=== PATIENT | male | born 1985 | race Two or more races ===

== ENCOUNTER 2017-07-07 05:53 | Emergency (ER) | payer BC ==
[2017-07-07 06:14] VITALS: BP 145/90
[2017-07-07] MEDS ORDERED: ONDANSETRON HCL INJ/PF 4 MG/2 ML SDV IV ONE (06:22)
[2017-07-07] MEDS ORDERED: HYDROMORPHONE HCL INJ/PF 2 MG/ML AMPULE IV ONE (06:22)
--- NOTE | 2017-07-07 06:25 | ER Document Report ---
ED General - General Chief Complaint: Abdominal Pain Stated Complaint: ABDOMINAL PAIN Time Seen by Provider: 07/07/17 06:21 Mode of Arrival: Ambulatory Information source: Patient Notes: 32-year-old male who presents with sudden epigastric abdominal pain sharp started this morning. Patient denies any fevers or chills denies any nausea vomiting or diarrhea. Patient denies any previous similar episodes. TRAVEL OUTSIDE OF THE [place] IN LAST 30 DAYS: No - HPI Onset: Just prior to arrival Onset/Duration: Sudden Quality of pain: Sharp Severity: Moderate Pain Level: 2 Associated symptoms: Other Exacerbated by: Denies Relieved by: Denies Similar symptoms previously: No Recently seen / treated by doctor: No - Related Data Allergies/Adverse Reactions: No Known Allergies Allergy (Verified 07/07/17 06:40) Past Medical History - Social History Smoking Status: Never Smoker Cigarette use (# per day): No Chew tobacco use (# tins/day): No Smoking Education Provided: No Family History: Reviewed & Not Pertinent - Immunizations Hx Diphtheria, Pertussis, Tetanus Vaccination: No Review of Systems - Review of Systems Notes: REVIEW OF SYSTEMS: CONSTITUTIONAL : Denies fever, chills, or sweats. Denies recent illness. EENT: Denies eye, ear, throat, or mouth pain or symptoms. Denies nasal or sinus congestion or discharge. Denies throat, tongue, or mouth swelling or difficulty swallowing. CARDIOVASCULAR: Denies chest pain. Denies palpitations or racing or irregular heart beat. Denies ankle edema. RESPIRATORY: Denies cough, cold, or chest congestion. Denies shortness of breath, difficulty breathing, or wheezing. GASTROINTESTINAL: Admits to epigastric pain GENITOURINARY: Denies difficulty urinating, painful urination, burning, frequency, blood in urine, or discharge. MUSCULOSKELETAL: Denies back or neck pain or stiffness. Denies joint pain or swelling. SKIN: Denies rash, lesions or sores. HEMATOLOGIC : Denies easy bruising or bleeding. LYMPHATIC: Denies swollen, enlarged glands. NEUROLOGICAL: Denies confusion or altered mental status. Denies passing out or loss of consciousness. Denies dizziness or lightheadedness. Denies headache. Denies weakness or paralysis or loss of use of either side. Denies problems with gait or speech. Denies sensory loss, numbness, or tingling. Denies seizures. PSYCHIATRIC: Denies anxiety or stress. Denies depression, suicidal ideation, or homicidal ideation. ALL OTHER SYSTEMS REVIEWED AND NEGATIVE. Dictation was performed using [employer] voice recognition software PHYSICAL EXAMINATION: GENERAL: Initially rocking in pain HEAD: Atraumatic, normocephalic. EYES: Pupils equal round and reactive to light, extraocular movements intact, sclera anicteric, conjunctiva are normal. ENT: Nares patent, oropharynx clear without exudates. Moist mucous membranes. NECK: Normal range of motion, supple without lymphadenopathy LUNGS: Breath sounds clear to auscultation bilaterally and equal. No wheezes rales or rhonchi. HEART: Regular rate and rhythm without murmurs ABDOMEN: Soft, nontender, nondistended abdomen after GI cocktail. No guarding, no rebound. No masses appreciated. Musculoskeletal: Normal range of motion, no pitting or edema. No cyanosis. NEUROLOGICAL: Cranial nerves grossly intact. Normal speech, normal gait. Normal sensory, motor exams PSYCH: Normal mood, normal affect. SKIN: Warm, Dry, normal turgor, no rashes or lesions noted. Physical Exam - Vital signs Vitals: Temp Pulse Resp BP Pulse Ox 98.5 F 96 20 145/90 H 97 07/07/17 06:13 07/07/17 06:13 07/07/17 06:13 07/07/17 06:13 07/07/17 06:13 Course - Re-evaluation Re-evalutation: 07/07/17 08:19 Patient was initially given pain medication this did not improve his symptoms, he was immediately sent for an ultrasound to rule out an acute cholecystitis, his lab work was quite benign, he was given a GI cocktail which completely resolved his symptoms. Patient states he feels much better is happy in no distress at this time ultrasound report is pending - Vital Signs Vital signs: Temp Pulse Resp BP Pulse Ox 98.5 F 96 20 145/90 H 97 07/07/17 06:13 07/07/17 06:13 07/07/17 06:13 07/07/17 06:13 07/07/17 06:13 - Laboratory Result Diagrams: 07/07/17 06:30 07/07/17 06:30 Laboratory results interpreted by me: 07/07/17 07/07/17 06:30 06:30 RBC 5.59 H RDW 14.9 H Sodium 145.1 H Carbon Dioxide 31 H ALT 127 H Albumin 5.1 H
[2017-07-07 06:44] LABS: ABSOLUTE BASOPHILS # (AUTO) 0.1 10^3/uL (0.0-0.2); ABSOLUTE EOSINOPHILS # (AUTO) 0.2 10^3/uL (0.0-0.6); ABSOLUTE LYMPHOCYTES (AUTO) 2.7 10^3/uL (0.5-4.7); ABSOLUTE NEUT (AUTO) 5.1 10^3/uL (1.7-8.2); BASOPHILS % (AUTO) 0.6 % (0-2); EOSINOPHILS % (AUTO) 2.5 % (0-6); HEMATOCRIT 45.9 % (37.9-51.0); HEMOGLOBIN 15.3 g/dL (13.5-17.0); LYMPHOCYTES % (AUTO) 29.4 % (13-45); MEAN CORPUSCULAR HEMOGLOBIN 27.3 pg (27.0-33.4); MEAN CORPUSCULAR HGB CONC 33.3 g/dL (32.0-36.0); MEAN CORPUSCULAR VOLUME 82 fl (80-97); MONOCYTES % (AUTO) 11.5 % (3-13); PLATELET COUNT 236 10^3/uL (150-450); RED BLOOD COUNT 5.59 10^6/uL (4.35-5.55); RED CELL DISTRIBUTION WIDTH 14.9 % (11.5-14.0); TOTAL CELLS COUNTED % (AUTO) 100 %; WHITE BLOOD COUNT 9.1 10^3/uL (4.0-10.5)
[2017-07-07 06:59] LABS: ALANINE AMINOTRANSFERASE 127 U/L (21-72); ALBUMIN 5.1 g/dL (3.5-5.0); ALKALINE PHOSPHATASE 72 U/L (38-126); ANION GAP 14 (5-19); ASPARTATE AMINO TRANSFERASE 56 U/L (17-59); BILIRUBIN,DIRECT 0.2 mg/dL (0.0-0.4); BILIRUBIN,TOTAL 0.9 mg/dL (0.2-1.3); BLOOD UREA NITROGEN 12 mg/dL (7-20); CALCIUM 9.9 mg/dL (8.4-10.2); CARBON DIOXIDE 31 mmol/L (22-30); CHLORIDE 100 mmol/L (98-107); GLUCOSE 107 mg/dL (75-110); LIPASE 106.2 U/L (23-300); POTASSIUM 3.9 mmol/L (3.6-5.0); SODIUM 145.1 mmol/L (137-145); TOTAL PROTEIN 8.1 g/dL (6.3-8.2)
[2017-07-07] MEDS ORDERED: MAG HYDROX/AL HYDROX/SIMETH SUSP 30 ML UDCUP PO ONE (07:14)
[2017-07-07] MEDS ORDERED: LIDOCAINE 2% VISCOUS SOLN 20 ML UDCUP PO ONE (07:14)
[2017-07-07] MEDS ORDERED: METOCLOPRAMIDE HCL ORAL SOLN 10 MG/10 ML UDCUP PO ONE (07:14)
--- NOTE | 2017-07-07 08:24 | RADIOLOGY REPORT (SQ) ---
EXAM DESCRIPTION: U/S ABDOMEN LIMITED W/O DOP COMPLETED DATE/TIME: 07/07/2017 6:58 am REASON FOR STUDY: RUQ pain COMPARISON: 04/02/2017. TECHNIQUE: Dynamic and static grayscale images acquired of the right upper quadrant and recorded on PACS. Additional selected color Doppler and spectral images recorded. LIMITATIONS: Study limited due to acoustical interference from fat or from air in the bowel. FINDINGS: PANCREAS: Parts of the pancreas poorly seen secondary to acoustical interference from fat or from air in the bowel. LIVER: Echotexture is coarse with increased echogenicity consistent with fatty infiltration. No mass es. LIVER VASCULATURE: Normal directional flow of the main portal vein and hepatic veins. GALLBLADDER: Sludge in the gallbladder. Normal wall thickness. No pericholecystic fluid. ULTRASOUND-DETECTED HOPPER'S SIGN: Negative. INTRAHEPATIC DUCTS AND COMMON DUCT: CBD and intrahepatic ducts normal caliber. No filling defects. INFERIOR VENA CAVA: Normal flow. AORTA: No aneurysm. RIGHT KIDNEY: Normal size. Normal echogenicity. No solid or suspicious masses. No hydronephrosis. No calcifications. PERITONEAL CAVITY AND RIGHT PLEURAL SPACE: No ascites or effusions. OTHER: No other significant finding. IMPRESSION: 1. SLUDGE IN THE GALLBLADDER. 2. FATTY LIVER. PANCREAS PARTIALLY OBSCURED. OTHERWISE UNREMARKABLE RIGHT UPPER QUADRANT ULTRASOUND. TECHNICAL DOCUMENTATION: JOB ID: [id number] [employer]- All Rights Reserved
== END 2017-07-07 09:16 | disposition home or self-care (01) ==
LOC: ER 05:53
DX: K76.0 Fatty (change of) liver, not elsewhere classified (principal); K21.0 Gastro-esophageal reflux disease with esophagitis; R10.13 Epigastric pain; I10 Essential (primary) hypertension
CPT/HCPCS: 99284; 96374; 96375; 36415; 83690; 85025; 80053; 76705; J3490; J1170; J2405

== ENCOUNTER → 2017-09-12 | Outpatient (CLI) | payer BC ==
--- NOTE | 2017-09-12 09:37 | RADIOLOGY REPORT (SQ) ---
EXAM DESCRIPTION: U/S ABDOMEN LIMITED W/O DOP COMPLETED DATE/TIME: 09/12/2017 9:21 am REASON FOR STUDY: FATTY LIVER K76.0 FATTY (CHANGE OF) LIVER, NOT ELSEWHERE CLASSIFIED COMPARISON: 07/07/2017. TECHNIQUE: Dynamic and static grayscale images acquired of the abdomen and recorded on PACS. Additio nal selected color Doppler and spectral images recorded. LIMITATIONS: None. FINDINGS: PANCREAS: No masses. No peripancreatic edema or fluid collections. LIVER: Echotexture is coarse with increased echogenicity consistent with fatty infiltration. LIVER VASCULATURE: Normal directional flow of the main portal vein and hepatic veins. GALLBLADDER: Gallstone(s). No pericholecystic fluid. No wall thickening. ULTRASOUND-DETECTED HOPPER'S SIGN: Negative. INTRAHEPATIC DUCTS AND COMMON DUCT: CBD and intrahepatic ducts normal caliber. No filling defects. INFERIOR VENA CAVA: Normal flow. AORTA: No aneurysm. RIGHT KIDNEY: Normal size. Normal echogenicity. No solid or suspicious masses. No hydronephrosis. No calcifications. PERITONEAL AND RIGHT PLEURAL SPACE: No ascites or effusions. OTHER: No other significant finding. IMPRESSION: FATTY INFILTRATION OF THE LIVER. GALLSTONES. NO OTHER SIGNIFICANT FINDINGS. TECHNICAL DOCUMENTATION: JOB ID: [id number] [employer]- All Rights Reserved Reading location - IP/workstation name: [email or web address]
== END ==
LOC: RAD 08:48
PROVIDERS: ATTEND Family Medicine
DX: K76.0 Fatty (change of) liver, not elsewhere classified (principal)
CPT/HCPCS: 76705

== ENCOUNTER 2018-08-23 10:45 | Inpatient (IN) | payer BC ==
[~2018-08-23 10:45] MED LIST: DEXAMETHASONE SOD PHOSPHATE INJ 4 MG/1 ML VIAL ONE; GLYCOPYRROLATE 1 MG/5 ML SYRINGE ONE; LIDOCAINE 2% INJ-PF (20 MG/ML) 2 ML AMPUL ONE; NEOSTIGMINE METHYLSULFATE 10 MG/10 ML VIAL ONE; ONDANSETRON HCL INJ/PF 4 MG/2 ML SDV ONE; ROCURONIUM BROMIDE INJ 50 MG/5 ML VIAL IV ONE; SUCCINYLCHOLINE CHLORIDE INJ 200 MG/10 ML VIAL ONE
[2018-08-23] MEDS ORDERED: MORPHINE SULFATE 10 MG/ML INJ IV ONE (10:58)
--- NOTE | 2018-08-23 11:02 | ER Document Report ---
ED Medical Screen (RME) - General Chief Complaint: Abdominal Pain Stated Complaint: ABDOMINAL PAIN Time Seen by Provider: 08/23/18 10:57 Primary Care Provider: JA ROWE MD [Primary Care Provider] - Follow up as needed Mode of Arrival: Ambulatory Information source: Patient, Relative TRAVEL OUTSIDE OF THE [place] IN LAST 30 DAYS: No - HPI Patient complains to provider of: abd pain Onset: Yesterday - pt with RUQ pain for the day. Has h/o sludge in GB - Related Data Allergies/Adverse Reactions: No Known Allergies Allergy (Verified 08/23/18 10:48) Past Medical History Renal/ Medical History: Denies: Hx Peritoneal Dialysis - Immunizations Hx Diphtheria, Pertussis, Tetanus Vaccination: No Physical Exam - Vital signs Vitals: Temp Pulse Resp BP Pulse Ox 98.2 F 90 17 152/98 H 99 08/23/18 10:49 08/23/18 10:49 08/23/18 10:49 08/23/18 10:49 08/23/18 10:49 Course - Vital Signs Vital signs: Temp Pulse Resp BP Pulse Ox 98.2 F 90 17 152/98 H 99 08/23/18 10:49 08/23/18 10:49 08/23/18 10:49 08/23/18 10:49 08/23/18 10:49 Doctor's Discharge - Discharge Referrals: JA ROWE MD [Primary Care Provider] - Follow up as needed
[2018-08-23] MEDS ORDERED: ONDANSETRON HCL INJ/PF 4 MG/2 ML SDV IV ONE ×2 (11:16→12:35)
[2018-08-23 11:29] LABS: ABSOLUTE EOSINOPHILS # (AUTO) 0.2 10^3/uL (0.0-0.6); ABSOLUTE LYMPHOCYTES (AUTO) 2.5 10^3/uL (0.5-4.7); ABSOLUTE MONOCYTES (AUTO) 0.8 10^3/uL (0.1-1.4); ABSOLUTE NEUT (AUTO) 4.9 10^3/uL (1.7-8.2); BASOPHILS % (AUTO) 0.5 % (0-2); EOSINOPHILS % (AUTO) 2.5 % (0-6); HEMOGLOBIN 15.5 g/dL (13.5-17.0); LYMPHOCYTES % (AUTO) 29.4 % (13-45); MEAN CORPUSCULAR HEMOGLOBIN 27.1 pg (27.0-33.4); MEAN CORPUSCULAR HGB CONC 33.7 g/dL (32.0-36.0); MEAN CORPUSCULAR VOLUME 81 fl (80-97); MONOCYTES % (AUTO) 8.9 % (3-13); PLATELET COUNT 245 10^3/uL (150-450); RED BLOOD COUNT 5.72 10^6/uL (4.35-5.55); SEGMENTED NEUTROPHILS % (AUTO) 58.7 % (42-78); TOTAL CELLS COUNTED % (AUTO) 100 %; WHITE BLOOD COUNT 8.4 10^3/uL (4.0-10.5)
[2018-08-23 11:38] LABS: APPEARANCE,URINE CLEAR; BILIRUBIN,URINE SMALL (NEGATIVE); COLOR,URINE YELLOW; GLUCOSE, URINE NEGATIVE (NEGATIVE); KETONES,URINE NEGATIVE (NEGATIVE); LEUKOCYTE ESTERASE,URINE NEGATIVE (NEGATIVE); NITRITE,URINE NEGATIVE (NEGATIVE); PROTEIN,URINE NEGATIVE (NEGATIVE); URINE SPECIFIC GRAVITY 1.024
[2018-08-23 12:00] LABS: ALANINE AMINOTRANSFERASE 126 U/L (21-72); ALBUMIN 4.8 g/dL (3.5-5.0); ALKALINE PHOSPHATASE 89 U/L (38-126); ANION GAP 11 (5-19); ASPARTATE AMINO TRANSFERASE 64 U/L (17-59); BILIRUBIN,DIRECT 0.4 mg/dL (0.0-0.4); BILIRUBIN,TOTAL 1.2 mg/dL (0.2-1.3); BLOOD UREA NITROGEN 15 mg/dL (7-20); CALCIUM 10.2 mg/dL (8.4-10.2); CARBON DIOXIDE 33 mmol/L (22-30); CHLORIDE 98 mmol/L (98-107); GLUCOSE 118 mg/dL (75-110); LIPASE 94.6 U/L (23-300); POTASSIUM 3.7 mmol/L (3.6-5.0); SODIUM 142.2 mmol/L (137-145); TOTAL PROTEIN 8.8 g/dL (6.3-8.2)
--- NOTE | 2018-08-23 12:28 | RADIOLOGY REPORT (SQ) ---
EXAM DESCRIPTION: U/S ABDOMEN LTD W/DOPPLER COMPLETED DATE/TIME: 08/23/2018 12:15 pm REASON FOR STUDY: RUQ abd pain COMPARISON: Right upper quadrant ultrasound 09/12/2017, and 07/07/2017, 04/02/2017 TECHNIQUE: Dynamic and static grayscale images acquired of the abdomen and recorded on PACS. Additio nal selected color Doppler and spectral images recorded. LIMITATIONS: Midline bowel gas FINDINGS: PANCREAS: Not visualized LIVER: Echogenic liver from fatty infiltration LIVER VASCULATURE: Normal directional flow of the main portal vein and hepatic veins. GALLBLADDER: Gallbladder is distended. There is a 2 cm stone lodged in the gallbladder neck. Border line gallbladder wall thickening, trace pericholecystic fluid ULTRASOUND-DETECTED GRANGER'S SIGN: Positive. INTRAHEPATIC DUCTS AND COMMON DUCT: CBD and intrahepatic ducts normal caliber. No filling defects. INFERIOR VENA CAVA: Normal flow. AORTA: No aneurysm. RIGHT KIDNEY: Normal size. Normal echogenicity. No solid or suspicious masses. No hydronephrosis. No calcifications. PERITONEAL AND RIGHT PLEURAL SPACE: No ascites or effusions. OTHER: No other significant findings. IMPRESSION: 2 cm stone lodged in the gallbladder neck with borderline gallbladder wall thickening, t race pericholecystic fluid and positive sonographic Granger sign worrisome for acute cholecystitis Fatty liver TECHNICAL DOCUMENTATION: JOB ID: [id number]- All Rights Reserved Reading location - IP/workstation name: [email or web address]
[2018-08-23] MEDS ORDERED: PIPERACILLIN/TAZOBACTAM 3.375 GM VIAL IV ONE (12:35)
[2018-08-23] MEDS ORDERED: HYDROMORPHONE HCL INJ/PF 2 MG/ML AMPULE IV ONE (12:35)
--- NOTE | 2018-08-23 13:32 | ER Document Report ---
ED General - General Chief Complaint: Abdominal Pain Stated Complaint: ABDOMINAL PAIN Time Seen by Provider: 08/23/18 10:57 Primary Care Provider: JA ROWE MD [Primary Care Provider] - Follow up as needed Mode of Arrival: Ambulatory TRAVEL OUTSIDE OF THE [place] IN LAST 30 DAYS: No - HPI Notes: Patient is a 33-year-old male who presents to the emergency permit for abdominal pain. It was of sudden onset of 5:00 this morning. It is cramping and sharp. Is in the epigastric region. He has had some nausea but no vomiting. Normal bowel movement last night at about 8 PM. No fevers or chills. He has a history of "gallbladder sludge." He has not had further evaluation for cholecystectomy. Normal urination, has not noticed any change in the color of his urine. - Related Data Allergies/Adverse Reactions: No Known Allergies Allergy (Verified 08/23/18 10:48) Past Medical History - General Information source: Patient, Relative - Social History Smoking Status: Current Every Day Smoker Family History: Reviewed & Not Pertinent Patient has suicidal ideation: No Patient has homicidal ideation: No - Past Medical History Cardiac Medical History: Reports: Hx Hypertension Renal/ Medical History: Denies: Hx Peritoneal Dialysis Psychiatric Medical History: Reports: Hx Depression - Immunizations Hx Diphtheria, Pertussis, Tetanus Vaccination: No Review of Systems - Review of Systems Constitutional: Malaise EENT: No symptoms reported Cardiovascular: No symptoms reported Respiratory: No symptoms reported Gastrointestinal: See HPI Genitourinary: No symptoms reported Musculoskeletal: No symptoms reported Skin: No symptoms reported Neurological/Psychological: No symptoms reported Physical Exam - Vital signs Vitals: Temp Pulse Resp BP Pulse Ox 98.2 F 90 17 152/98 H 99 08/23/18 10:49 08/23/18 10:49 08/23/18 10:49 08/23/18 10:49 08/23/18 10:49 - Notes Notes: Patient is a 33-year-old gentleman, appears his stated age, in moderate distress. Vital signs reviewed, please refer to chart. Patient is normocephalic, atraumatic. Pupils equal round, reactive to light. Neck is supple without meningismus. Heart is regular rate and rhythm. Lungs are clear to auscultation bilaterally. Abdomen is firm with epigastric, left upper quadrant, right upper quadrant tenderness to palpation. No guarding. Extremities without cyanosis, clubbing, edema. Peripheral pulses are equal. Skin is warm and dry. Patient is awake, alert, neurological exam is nonfocal. Course - Re-evaluation Re-evalutation: 08/23/18 13:31 Patient presents emergency department for evaluation of abdominal pain. He was initially seen by the physician in triage. Laboratory investigations and ultrasound were ordered. Laboratory investigations were remarkable for mildly elevated LFTs. He has normal bilirubin. No leukocytosis. Ultrasound reveals pericholecystic fluid, 2 cm stone in the neck of the gallbladder, findings consistent with acute cholecystitis. Patient did have positive sonographic Granger sign. He was medicated here with pain medication, Zosyn. Dr. Diamond was consulted at 1300. He agreed to admit the patient for cholecystectomy. 08/23/18 13:32 - Vital Signs Vital signs: Temp Pulse Resp BP Pulse Ox 98.2 F 90 17 152/98 H 99 08/23/18 10:49 08/23/18 10:49 08/23/18 10:49 08/23/18 10:49 08/23/18 10:49 - Laboratory Result Diagrams: 08/23/18 11:15 08/23/18 11:15 Laboratory results interpreted by me: 08/23/18 08/23/18 08/23/18 11:15 11:15 11:15 RBC 5.72 H RDW 15.0 H Carbon Dioxide 33 H Glucose 118 H AST 64 H ALT 126 H Total Protein 8.8 H Urine Bilirubin SMALL H Urine Urobilinogen 4.0 H Discharge - Discharge Clinical Impression: Acute cholecystitis, Cholelithiasis and acute cholecystitis without obstruction Condition: Stable Disposition: ADMITTED INPATIENT Admitting Provider: Surgicalist - Dr. Diamond Unit Admitted: Surgical Floor Referrals: JA ROWE MD [Primary Care Provider] - Follow up as needed
[2018-08-23] MEDS ORDERED: GLUCAGON,HUMAN RECOMB 1 MG INJ SUBCUT PRN (13:52)
[2018-08-23] MEDS ORDERED: ONDANSETRON HCL INJ/PF 4 MG/2 ML SDV IV PRN (13:52)
[2018-08-23] MEDS ORDERED: DEXTROSE 40% GEL 15 GM TUBE PO PRN ×2 (13:52)
[2018-08-23] MEDS ORDERED: DEXTROSE 5%-LACTATED RINGERS 1,000 ML IV PRN (13:52)
[2018-08-23] MEDS ORDERED: DEXTROSE 50%-WATER 25 GM/50 ML DISP.SYRIN IV PRN ×2 (13:52)
[2018-08-23] MEDS ORDERED: MORPHINE SULFATE 10 MG/ML INJ IV PRN (13:52)
[2018-08-23] MEDS ORDERED: FENTANYL CITRATE INJ/PF 100 MCG/2 ML AMPUL ONE (16:54)
[2018-08-23] MEDS ORDERED: HYDROMORPHONE HCL INJ/PF 2 MG/ML AMPULE ONE (16:54)
[2018-08-23] MEDS ORDERED: MIDAZOLAM 2 MG/2 ML INJ ONE (16:54)
[2018-08-23] MEDS ORDERED: PROPOFOL INJ 200 MG/20 ML VIAL IV ONE (16:55)
[2018-08-23] MEDS ORDERED: ACETAMINOPHEN 1,000 MG/100 ML RTUPB IV ONE (16:55)
[2018-08-23] MEDS ORDERED: BUPIVACAINE HCL 0.25 % INJ/PF (2.5 MG/1 ML) 30 ML VIAL ONE (18:09)
[2018-08-23] MEDS ORDERED: CEFAZOLIN INJ 1 GM VIAL ONE (18:51)
[2018-08-23] MEDS ORDERED: METRONIDAZOLE 500 MG/NS RTU 500 MG/100 ML RTUPB IV ONE (18:51)
[2018-08-23] MEDS ORDERED: PROMETHAZINE HCL INJ 25 MG/1 ML VIAL IV PRN (19:14)
[2018-08-23] MEDS ORDERED: MEPERIDINE HCL/PF INJ 25 MG/1 ML DISP.SYRIN IV PRN (19:14)
[2018-08-23] MEDS ORDERED: DIPHENHYDRAMINE HCL 50 MG/ML VIAL IV PRN (19:14)
[2018-08-23] MEDS ORDERED: FENTANYL CITRATE INJ/PF 100 MCG/2 ML AMPUL IV PRN ×3 (19:14)
[2018-08-23] MEDS ORDERED: NALOXONE HCL INJ/PF 0.4 MG/1 ML SDV ONE (20:00)
--- NOTE | 2018-08-23 22:40 | Operative Report ---
Nonrecallable Operative Report DATE OF SURGERY: 08/23/18 PREOPERATIVE DIAGNOSIS: Acute cholecystitis POSTOPERATIVE DIAGNOSIS: Acute cholecystitis OPERATION: Laparoscopic cholecystectomy SURGEON: TIEN RAMON ANESTHESIA: GA TISSUE REMOVED OR ALTERED: Gallbladder COMPLICATIONS: None apparent ESTIMATED BLOOD LOSS: 50cc PROCEDURE: Drains/implants: None. Procedure in detail: After informed consent was obtained, the patient was brought into the operating room and laid in the supine position. The area of the abdomen was prepped and draped in a normal sterile fashion. A supraumbilical incision was created with a 15 blade scalpel. Dissection was carried through the subcutaneous tissue using sharp and blunt means. The cicatrix was identified, grasped with a Javier clamp, and retracted upwards. The linea alba fascia was incised sharply, the abdomen was entered sharply. The balloon trocar was inserted, and pneumoperitoneum was achieved. A subxiphoid 5 mm port was placed under direct laparoscopic visualization. 2 more 5 mm ports were placed in the right upper quadrant in similar fashion. Atraumatic graspers were placed through the 5 mm ports. The gallbladder was retracted cephalad. There was a dense inflammatory reaction in and around the gallbladder. Dissection in the infundibulum was very difficult. Secondary to this, a dome down approach was favored. The gallbladder was freed from the liver, from the dome to the infundibulum. Once the infundibulum was reached it was retracted upwards, and a PDS Endoloop was secured around the base of the infundibulum. Once this was completed the gallbladder was amputated and placed into an Endo Catch bag. It was then pulled out of the umbilicus. The camera was reinserted. The hilum was inspected. It was found to be free of any leakage of blood or bile. The abdomen was then copiously irrigated and suctioned until the effluent was clear. The 5 mm trochars were then removed under direct laparoscopic visualization. The supraumbilical trocar was removed, and pneumoperitoneum was relieved. The supraumbilical fascia was closed using 0 Vicryl suture in [id number] fashion. The overlying skin was closed using 4-0 Vicryl Rapide suture in subcuticular fashion. All sponge, instrument, and needle counts were correct x2. Condition: Stable.
[2018-08-24] MEDS ORDERED: ONDANSETRON 4 MG TAB.RAPDIS PO PRN (01:56)
[2018-08-24] MEDS: HYDROCODONE/ACETAMINOPHEN 10-325 MG TABLET PO PRN ×2 (02:16→09:41)
--- NOTE | 2018-08-24 06:36 | PDOC DISCHARGE SUMMARY ---
General - Admit/Disc Date/PCP Admission Date/Primary Care Provider: 08/23/18 13:38 JA ROWE MD Discharge Date: 08/24/18 - Discharge Diagnosis (1) Acute cholecystitis Is this a current diagnosis for this admission?: Yes - Additional Information Resuscitation Status: Full Code Discharge Diet: As Tolerated Discharge Activity: No Lifting Over 10 Pounds Home Medications: Cyclosporine 0.05% Oph Emulsio [Restasis 0.05% Oph Emulsion Pf 0.4 ml] 1 drop OU BID 08/23/18 Escitalopram Oxalate [Lexapro] 20 mg PO DAILY 08/23/18 Hydrochlorothiazide [Hydrodiuril 25 mg Tablet] 25 mg PO DAILY 08/23/18 History of Present Illness History of Present Illness: ALISE JUARES is a 33 year old male who awoke this morning at approximately 4 AM 100 pain, nausea, and vomiting. His pain and nausea worsened significantly, and he presented to the emergency department. The patient reports "gallbladder trouble" for the last year. He is not sought cholecystectomy because the pain "goes away". Today his pain is unrelenting, sharp, and stabbing. He rates it 8 out of 10. It is associated with nausea and vomiting. The patient tried to eat this morning at approximately 4 or 5 AM. He vomited the majority of what he took in. The patient denies any chest pain, shortness of breath, fevers, chills, headache, dizziness, blurry vision, fatigue. The patient does continue to experience nausea, right upper quadrant pain, and malaise. Nothing makes his pain better, palpation makes it worse. Hospital Course Hospital Course: Patient was admitted to the hospital for laparoscopic cholecystectomy. The patient was found to have acute cholecystitis, however the surgery was performed successfully. The patient was sent to the floor in stable condition after laparoscopic cholecystectomy. While on the floor, he began ambulating, tolerating a diet, his pain was controlled with oral pain medications, felt that he had reached maximal hospital benefit. By 08/24/2018 it was felt that he was fit for discharge. Physical Exam Vital Signs: Temp Pulse Resp BP Pulse Ox 98.3 F 94 16 119/62 96 08/24/18 04:16 08/24/18 04:16 08/24/18 04:16 08/24/18 04:16 08/24/18 04:16 Intake & Output 08/22/18 08/23/18 08/24/18 06:59 06:59 06:59 Intake Total 3760 Output Total 1020 Balance 2740 Weight 97.3 kg Results Laboratory Results: 08/23/18 11:15 08/23/18 11:15 08/23/18 08/23/18 08/23/18 11:15 11:15 11:15 WBC 8.4 RBC 5.72 H Hgb 15.5 Hct 46.0 MCV 81 MCH 27.1 MCHC 33.7 RDW 15.0 H Plt Count 245 Seg Neutrophils % 58.7 Lymphocytes % 29.4 Monocytes % 8.9 Eosinophils % 2.5 Basophils % 0.5 Absolute Neutrophils 4.9 Absolute Lymphocytes 2.5 Absolute Monocytes 0.8 Absolute Eosinophils 0.2 Absolute Basophils 0.0 Sodium 142.2 Potassium 3.7 Chloride 98 Carbon Dioxide 33 H Anion Gap 11 BUN 15 Creatinine 0.73 Est GFR ( Amer) > 60 Est GFR (Non-Af Amer) > 60 Glucose 118 H Calcium 10.2 Total Bilirubin 1.2 AST 64 H ALT 126 H Alkaline Phosphatase 89 Total Protein 8.8 H Albumin 4.8 Lipase 94.6 Urine Color YELLOW Urine Appearance CLEAR Urine pH 6.0 Ur Specific [place] 1.024 Urine Protein NEGATIVE Urine Glucose (UA) NEGATIVE Urine Ketones NEGATIVE Urine Blood NEGATIVE Urine Nitrite NEGATIVE Ur Leukocyte Esterase NEGATIVE Urine WBC (Auto) 0 Urine RBC (Auto) 2 Impressions: Abdomen Ultrasound 08/23/18 10:57 IMPRESSION: 2 cm stone lodged in the gallbladder neck with borderline gallbladder wall thickening, trace pericholecystic fluid and positive sonographic Granger sign worrisome for acute cholecystitis Fatty liver Qualifiers - * PATIENT BEING DISCHARGED WITH ANY OF THE FOLLOWING DIAGNOSIS: No Plan Discharge Plan: Discharge home. Diet as tolerated. Activity: No lifting greater than 10 pounds x 2 weeks. Follow-up with me in 7-10 days and [facility]. Vale 10/325 mg p.o. every 6 hours as needed for pain. Okay to shower starting Tuesda y. No tub baths, swimming pools, or hot tubs times 2 weeks.
[2018-08-24 06:56] LABS: ABSOLUTE LYMPHOCYTES (AUTO) 1.2 10^3/uL (0.5-4.7); ABSOLUTE MONOCYTES (AUTO) 0.7 10^3/uL (0.1-1.4); BASOPHILS % (AUTO) 0.2 % (0-2); MEAN CORPUSCULAR HEMOGLOBIN 27.3 pg (27.0-33.4); TOTAL CELLS COUNTED % (AUTO) 100 %
[2018-08-24 07:02] LABS: ABSOLUTE NEUT (AUTO) 8.7 10^3/uL (1.7-8.2); HEMATOCRIT 40.4 % (37.9-51.0); HEMOGLOBIN 13.6 g/dL (13.5-17.0); MEAN CORPUSCULAR HGB CONC 33.6 g/dL (32.0-36.0); MEAN CORPUSCULAR VOLUME 81 fl (80-97); MONOCYTES % (AUTO) 6.6 % (3-13); PLATELET COUNT 199 10^3/uL (150-450); RED BLOOD COUNT 4.98 10^6/uL (4.35-5.55); RED CELL DISTRIBUTION WIDTH 15.3 % (11.5-14.0); SEGMENTED NEUTROPHILS % (AUTO) 82.2 % (42-78); WHITE BLOOD COUNT 10.6 10^3/uL (4.0-10.5)
[2018-08-24 07:19] LABS: ALANINE AMINOTRANSFERASE 210 U/L (21-72); ALBUMIN 3.9 g/dL (3.5-5.0); ALKALINE PHOSPHATASE 63 U/L (38-126); ANION GAP 6 (5-19); ASPARTATE AMINO TRANSFERASE 138 U/L (17-59); BILIRUBIN,DIRECT 0.3 mg/dL (0.0-0.4); BILIRUBIN,TOTAL 1.6 mg/dL (0.2-1.3); BLOOD UREA NITROGEN 14 mg/dL (7-20); CALCIUM 9.3 mg/dL (8.4-10.2); CARBON DIOXIDE 31 mmol/L (22-30); CHLORIDE 101 mmol/L (98-107); GLUCOSE 130 mg/dL (75-110); POTASSIUM 3.8 mmol/L (3.6-5.0); SODIUM 138.1 mmol/L (137-145)
[2018-08-24 08:08] VITALS: BP 132/71
[2018-08-24] MEDS ORDERED: HYDROCHLOROTHIAZIDE 25 MG TABLET PO SCH (10:00)
[2018-08-24] MEDS ORDERED: ESCITALOPRAM OXALATE 10 MG TABLET PO SCH (10:00)
[2018-08-24] MEDS ORDERED: CYCLOSPORINE 0.05% OPH EMULSIO 0.4 ML DROPERETTE OU SCH (10:00)
--- NOTE | 2018-08-26 11:26 | PDOC H&P ---
History of Present Illness Admission Date/PCP: 08/23/18 13:38 JA ROWE MD Patient complains of: Right upper quadrant pain, nausea, vomiting History of Present Illness: ALISE JUARES is a 33 year old male who awoke this morning at approximately 4 AM 100 pain, nausea, and vomiting. His pain and nausea worsened significantly, and he presented to the emergency department. The patient reports "gallbladder trouble" for the last year. He is not sought cholecystectomy because the pain "goes away". Today his pain is unrelenting, sharp, and stabbing. He rates it 8 out of 10. It is associated with nausea and vomiting. The patient tried to eat this morning at approximately 4 or 5 AM. He vomited the majority of what he took in. The patient denies any chest pain, shortness of breath, fevers, chills, headache, dizziness, blurry vision, fatigue. The patient does continue to experience nausea, right upper quadrant pain, and malaise. Nothing makes his pain better, palpation makes it worse. Past Medical History Cardiac Medical History: Reports: Hypertension Psychiatric Medical History: Reports: Depression Social History Smoking Status: Current Every Day Smoker Hx Recreational Drug Use: No Hx Prescription Drug Abuse: No Family History Family History: Reviewed & Not Pertinent Parental Family History Reviewed: Yes Children Family History Reviewed: Yes Sibling(s) Family History Reviewed.: Yes Medication/Allergy Home Medications: Cyclosporine 0.05% Oph Emulsio [Restasis 0.05% Oph Emulsion Pf 0.4 ml] 1 drop OU BID 08/23/18 Escitalopram Oxalate [Lexapro] 20 mg PO DAILY 08/23/18 Hydrochlorothiazide [Hydrodiuril 25 mg Tablet] 25 mg PO DAILY 08/23/18 Allergies/Adverse Reactions: No Known Allergies Allergy (Verified 08/23/18 10:48) Review of Systems Constitutional: PRESENT: anorexia. ABSENT: chills, fatigue, fever(s), headache(s) Eyes: ABSENT: visual disturbances Ears: ABSENT: hearing changes Nose, Mouth, and Throat: ABSENT: mouth pain, sore throat Cardiovascular: ABSENT: chest pain, dyspnea on exertion Respiratory: ABSENT: cough Gastrointestinal: PRESENT: abdominal pain, nausea, vomiting. ABSENT: hematemesis, hematochezia, melena Genitourinary: ABSENT: dysuria Musculoskeletal: ABSENT: back pain Integumentary: ABSENT: pruritus, rash Neurological: ABSENT: confusion, convulsions, dizziness Psychiatric: ABSENT: anxiety, depression Endocrine: ABSENT: cold intolerance, heat intolerance Hematologic/Lymphatic: ABSENT: easy bleeding, easy bruising Physical Exam Vital Signs: Temp Pulse Resp BP Pulse Ox 98.2 F 90 17 152/98 H 99 08/23/18 10:49 08/23/18 10:49 08/23/18 10:49 08/23/18 10:49 08/23/18 10:49 Intake & Output 08/22/18 08/23/18 08/24/18 06:59 06:59 06:59 Weight 97.3 kg General appearance: PRESENT: cooperative, mild distress - Right upper quadrant pain Head exam: PRESENT: atraumatic, normocephalic Eye exam: PRESENT: EOMI, PERRLA. ABSENT: scleral icterus Mouth exam: PRESENT: moist, neck supple Neck exam: ABSENT: meningismus, tenderness, thyromegaly, tracheal deviation Respiratory exam: PRESENT: chest wall tenderness. ABSENT: clear to auscultation ian Cardiovascular exam: PRESENT: RRR Pulses: PRESENT: normal radial pulses Vascular exam: PRESENT: normal capillary refill. ABSENT: pallor GI/Abdominal exam: PRESENT: guarding, mass - Right upper quadrant, Granger's sign, soft, tenderness - Right upper quadrant. ABSENT: distended Rectal exam: PRESENT: deferred Extremities exam: ABSENT: clubbing Musculoskeletal exam: ABSENT: deformity Neurological exam: PRESENT: alert, awake, oriented to person, oriented to place, oriented to time, oriented to situation, CN II-XII grossly intact Psychiatric exam: ABSENT: agitated, anxious, depressed Focused psych exam: ABSENT: delusional Skin exam: ABSENT: cyanosis, erythema, jaundice Results Laboratory Results: 08/23/18 11:15 08/23/18 11:15 08/23/18 08/23/18 08/23/18 11:15 11:15 11:15 WBC 8.4 RBC 5.72 H Hgb 15.5 Hct 46.0 MCV 81 MCH 27.1 MCHC 33.7 RDW 15.0 H Plt Count 245 Seg Neutrophils % 58.7 Lymphocytes % 29.4 Monocytes % 8.9 Eosinophils % 2.5 Basophils % 0.5 Absolute Neutrophils 4.9 Absolute Lymphocytes 2.5 Absolute Monocytes 0.8 Absolute Eosinophils 0.2 Absolute Basophils 0.0 Sodium 142.2 Potassium 3.7 Chloride 98 Carbon Dioxide 33 H Anion Gap 11 BUN 15 Creatinine 0.73 Est GFR ( Amer) > 60 Est GFR (Non-Af Amer) > 60 Glucose 118 H Calcium 10.2 Total Bilirubin 1.2 AST 64 H ALT 126 H Alkaline Phosphatase 89 Total Protein 8.8 H Albumin 4.8 Lipase 94.6 Urine Color YELLOW Urine Appearance CLEAR Urine pH 6.0 Ur Specific [place] 1.024 Urine Protein NEGATIVE Urine Glucose (UA) NEGATIVE Urine Ketones NEGATIVE Urine Blood NEGATIVE Urine Nitrite NEGATIVE Ur Leukocyte Esterase NEGATIVE Urine WBC (Auto) 0 Urine RBC (Auto) 2 Impressions: Abdomen Ultrasound 08/23/18 10:57 IMPRESSION: 2 cm stone lodged in the gallbladder neck with borderline gallbladder wall thickening, trace pericholecystic fluid and positive sonographic Granger sign worrisome for acute cholecystitis Fatty liver Assessment & Plan - Diagnosis (1) Acute cholecystitis Is this a current diagnosis for this admission?: Yes - Plan Summary Plan Summary: This is a 33-year-old male with acute cholecystitis. Plan to admit to the hospital, start antibiotics, and perform laparoscopic (possible open) cholecystectomy. This is been discussed at length with the patient, and he agrees. Risks/benefits discussed, informed consent obtained, and all questions answered.
== END 2018-08-24 10:45 | disposition home or self-care (01) | DRG 419 ==
LOC: ER 10:45 → EH 13:38 → 2S 15:53
PROVIDERS: ADMIT Surgery; ATTEND Surgery
PROC: 0FT44ZZ Resection of Gallbladder, Percutaneous Endoscopic Approach (ICD-10-PCS; principal; 2018-08-23 18:00)
DX: K80.00 Calculus of gallbladder with acute cholecystitis without obstruction (principal); I10 Essential (primary) hypertension; F32.9 Major depressive disorder, single episode, unspecified; F17.200 Nicotine dependence, unspecified, uncomplicated
CPT/HCPCS: 36415; 76705; 790; 80053; 81001; 83690; 85025; 88304; 93976; 96365; 96375; 96376; 99285; J0131; J0330; J0690; J1100; J1170; J2250; J2270; J2310; J2405; J2543; J2704; J3010; J3490

== ENCOUNTER → 2019-04-30 | Outpatient (CLI) | payer BC ==
--- NOTE | 2019-04-30 11:22 | RADIOLOGY REPORT (SQ) ---
EXAM DESCRIPTION: U/S ABDOMEN LIMITED W/O DOP COMPLETED DATE/TIME: 04/30/2019 10:03 am REASON FOR STUDY: ABN LFTS R94.5 ABNORMAL RESULTS OF LIVER FUNCTION STUDIES COMPARISON: 08/23/2018 TECHNIQUE: Dynamic and static grayscale images acquired of the abdomen and recorded on PACS. Additio nal selected color Doppler and spectral images recorded. LIMITATIONS: None. FINDINGS: PANCREAS: No masses. Visualized pancreatic duct normal caliber. LIVER: Increased echogenicity with decreased visualization of the portal triads. No focal lesions. Liver measures up to 17.6 cm. LIVER VASCULATURE: Normal directional flow of the main portal vein and hepatic veins. GALLBLADDER: Surgically absent. ULTRASOUND-DETECTED HOPPER'S SIGN: Not applicable. INTRAHEPATIC DUCTS AND COMMON DUCT: CBD and intrahepatic ducts normal caliber. No filling defects. INFERIOR VENA CAVA: Normal flow. AORTA: No aneurysm. RIGHT KIDNEY: Normal size measuring 11.9 cm. . Normal echogenicity. No solid or suspicious masses. No hydronephrosis. No calcifications. PERITONEAL AND RIGHT PLEURAL SPACE: No ascites or effusions. OTHER: No other significant findings. IMPRESSION: 1. Hepatic steatosis. 2. Prior cholecystectomy. TECHNICAL DOCUMENTATION: JOB ID: [id number] [employer]- All Rights Reserved Reading location - IP/workstation name: [email or web address]
== END ==
LOC: RAD 09:09
PROVIDERS: ATTEND Physician Assistant
DX: K76.0 Fatty (change of) liver, not elsewhere classified (principal)
CPT/HCPCS: 76705

== ENCOUNTER → 2020-04-01 | Outpatient (CLI) | payer BC | LOC: OD 11:38 | PROVIDERS: ATTEND Internal Medicine | DX: E29.1 Testicular hypofunction (principal) | CPT/HCPCS: 36415; 84402; 84403 ==